=== PATIENT | male | born 1965 | race African-American/Black ===

== ENCOUNTER 2021-01-17 14:50 | Observation (INO) | payer MEDICARE ==
[2021-01-17] MEDS ORDERED: Bisacodyl 5 MG TAB PO PRN (16:35)
[2021-01-17] MEDS ORDERED: Ondansetron ODT 4 MG TAB PO PRN (16:35)
[2021-01-17] MEDS ORDERED: Senokot S 8.6-50 MG TAB PO PRN (16:35)
[2021-01-17] MEDS ORDERED: Acetaminophen 325 MG TAB PO PRN (16:35)
[2021-01-17] MEDS ORDERED: Ondansetron PF 4 MG/2 ML Vial IVP PRN (16:35)
[2021-01-17] MEDS ORDERED: traMADol HCl 50 MG TAB PO PRN (16:37)
[2021-01-17] MEDS ORDERED: HumaLOG 300 UNITS/3 ML VIAL SC PRN ×2 (16:40)
[2021-01-17] MEDS ORDERED: Dextrose 5% in Water 1,000 ML IV PRN (16:40)
[2021-01-17] MEDS ORDERED: Dextrose 50% Abboject 50 ML SYRINGE SLOW IVP PRN (16:40)
[2021-01-17] MEDS ORDERED: traZODone HCl 50 MG TAB ONE (20:06)
[2021-01-17] MEDS: traZODone HCl 50 MG TAB PO SCH (21:18)
[2021-01-18 04:07] LABS: #Basophils 0.1 10x3/uL (0.0-0.2); #Eosinphils 0.2 10x3/uL (0.0-0.5); #Monocytes 0.5 10x3/uL (0.0-1.1); #Neutrophils 2.4 10x3/uL (1.5-8.4); %Eosinophils 4.3 % (0.0-6.0); %Lymphocytes 37.2 % (18.0-47.0); %Monocytes 9.7 % (0.0-10.0); %Neutrophils 47.4 % (40.0-75.0); Hemoglobin 14.7 g/dL (13.5-17.5); Mean Corpuscular Hemoglobin 29.1 pg (27.0-33.0); Mean Corpuscular Volume 88.1 fl (81.2-95.1); Mean Platelet Volume 10.5 fl (7.4-10.4); RBC Distribution Width 13.8 % (11.5-14.5); Red Blood Cell (RBC) Count 5.05 10x6/uL (4.32-5.72); White Blood Cell (WBC) Count 5.1 10x3/uL (3.5-10.5)
[2021-01-18 04:08] LABS: Platelet Count 157 10x3/uL (150-450)
[2021-01-18 04:22] LABS: Anion Gap 14 mmol/L (10-20); BUN (Urea Nitrogen) 15 mg/dL (8.4-25.7); Calc. Creatinine Clearance 0 mL/min (70-130); Calcium 9.1 mg/dL (7.8-10.44); Carbon Dioxide 25 mmol/L (22-29); Cardiac Risk 3.3 (Less than 4.5); Chloride 104 mmol/L (98-107); Cholesterol 163 mg/dl (< 200 Desired); Glucose 102 mg/dL (70-105); HDL Cholesterol 49 mg/dL (>60 Neg Risk); LDL Cholesterol, Calculated 95 mg/dL; Magnesium 2.1 mg/dL (1.6-2.6); Sodium 139 mmol/L (136-145); Triglycerides 94 mg/dL (Less than 150)
[2021-01-18 07:58] VITALS: BMI 38.7
[2021-01-18] MEDS: Lisinopril 5 MG TAB PO SCH (09:20)
[2021-01-18] MEDS: Rivaroxaban 10 MG TAB PO SCH (09:21)
[2021-01-18] MEDS: Tamsulosin HCl 0.4 MG CAP PO SCH (09:21)
[2021-01-18] MEDS: Finasteride 5 MG TAB PO SCH (09:21)
[2021-01-18] MEDS: Allopurinol 100 MG TAB PO SCH (09:21)
[2021-01-18] MEDS: Aripiprazole 10 MG TAB PO SCH (09:21)
[2021-01-18] MEDS: Montelukast Sodium 10 mg Tablet PO SCH (12:59)
[2021-01-18 20:26] LABS: SARS-CoV-2 PCR by NAA Not Detected (NotDetected)
[2021-01-18] MEDS: traZODone HCl 50 MG TAB PO SCH (20:47)
[2021-01-19 05:10] LABS: #Eosinphils 0.2 10x3/uL (0.0-0.5); #Monocytes 0.5 10x3/uL (0.0-1.1); #Neutrophils 2.3 10x3/uL (1.5-8.4); %Basophils 0.8 % (0.0-2.0); %Eosinophils 4.3 % (0.0-6.0); %Lymphocytes 36.9 % (18.0-47.0); %Monocytes 9.9 % (0.0-10.0); %Neutrophils 47.7 % (40.0-75.0); Hemoglobin 14.2 g/dL (13.5-17.5); Mean Corpuscular HGB CONC 33.5 g/dL (32.0-36.0); Mean Corpuscular Hemoglobin 29.5 pg (27.0-33.0); Mean Corpuscular Volume 88.1 fl (81.2-95.1); Mean Platelet Volume 10.6 fl (7.4-10.4); Platelet Count 168 10x3/uL (150-450); RBC Distribution Width 13.4 % (11.5-14.5); Red Blood Cell (RBC) Count 4.81 10x6/uL (4.32-5.72); White Blood Cell (WBC) Count 4.8 10x3/uL (3.5-10.5)
[2021-01-19 05:23] LABS: Anion Gap 11 mmol/L (10-20); BUN (Urea Nitrogen) 18 mg/dL (8.4-25.7); CRP (Inflammatory) Less than 0.50 mg/dL (= or < 0.5); Calc. Creatinine Clearance 188 mL/min (70-130); Calcium 8.8 mg/dL (7.8-10.44); Carbon Dioxide 27 mmol/L (22-29); Chloride 104 mmol/L (98-107); Glucose 104 mg/dL (70-105); Potassium 3.9 mmol/L (3.5-5.1); Sodium 138 mmol/L (136-145)
[2021-01-19 08:37] VITALS: TEMP 97.6
[2021-01-19] MEDS: Tamsulosin HCl 0.4 MG CAP PO SCH (09:47)
[2021-01-19] MEDS: Montelukast Sodium 10 mg Tablet PO SCH (09:48)
[2021-01-19] MEDS: Rivaroxaban 10 MG TAB PO SCH (09:48)
[2021-01-19] MEDS: Lisinopril 5 MG TAB PO SCH (09:49)
[2021-01-19] MEDS: Aripiprazole 10 MG TAB PO SCH (09:49)
[2021-01-19] MEDS: Finasteride 5 MG TAB PO SCH (09:49)
[2021-01-19] MEDS: Allopurinol 100 MG TAB PO SCH (09:49)
[2021-01-19 15:33] VITALS: BP 122/74
== END 2021-01-19 16:50 | disposition home or self-care (01) ==
LOC: CSHERS 14:50 → CSHERHOLD 20:00 → CSHTELE 01-18 07:59
PROVIDERS: ADMIT Family Medicine; ATTEND Hospitalist
DX: R07.89 Other chest pain (principal); M54.5 Low back pain; G89.29 Other chronic pain; R00.1 Bradycardia, unspecified; I10 Essential (primary) hypertension; E11.9 Type 2 diabetes mellitus without complications; J45.909 Unspecified asthma, uncomplicated; F20.9 Schizophrenia, unspecified; F31.9 Bipolar disorder, unspecified; K21.9 Gastro-esophageal reflux disease without esophagitis; R53.1 Weakness; M10.9 Gout, unspecified; Z20.822 Contact with and (suspected) exposure to COVID-19; Z86.718 Personal history of other venous thrombosis and embolism; Z79.899 Other long term (current) drug therapy; Z79.01 Long term (current) use of anticoagulants; Z88.1 Allergy status to other antibiotic agents; Z88.2 Allergy status to sulfonamides; Z88.6 Allergy status to analgesic agent
CPT/HCPCS: 70450; 80048 ×2; 80061; 82962 ×2; 83735 ×2; 83880; 84443; 84484 ×2; 85025 ×2; 85379; 86140; 93005; 93306; 94760; 99285; G0378 ×4; U0003; U0005; 36415; 36416; 87635